=== PATIENT | female | born 1945 | race Caucasian/White ===

== ENCOUNTER → 2020-06-07 10:09 | Outpatient (CLI) | payer MEDICARE, OTHER, SELFPAY ==
--- NOTE | 2020-06-07 10:17 | MRI_ITS ---
STUDY: MRI BRAIN WITH AND WITHOUT CONTRAST REASON FOR EXAM: Female, 74 years old. 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 IV Dotarem 15ml was administered for the contrast portion of the examination. COMPARISON: MRA brain from today FINDINGS: Normal size of the ventricles and extra-axial spaces for the patient''s age. Normal white matter tracts of the supratentorial brain. Mild periventricular T2 lengthening. There is no evidence for recent intracranial ischemia or other cause of cytotoxic edema on diffusion weighted imaging (DWI). Normal bilateral basal ganglia. Normal thalami. There is no extra-axial fluid accumulation. Normal flow voids within the major intracranial circulation suggesting patency by spin echo criteria. Normal venous enhancement. There is no enhancing intra-axial or extra-axial abnormality. Normal sella turcica, pituitary gland, infundibular stalk, optic chiasm and hypothalamus. Normal tectal plate and pineal gland. Normal midbrain, deja and medulla. Normal cerebellum. Normal basal cisterns. Normal bilateral temporal bones. Normal bilateral internal auditory canals. No demonstrated orbital abnormality, within the constraints of a routine brain study. Mild mucosal thickening. Normal calvarium and skull base. Normal visualized soft tissue structures. Normal visualized upper cervical spine. MRI/Brain W/WO Contrast IMPRESSION: Involutional changes of the brain, as described above. Electronically Signed: Ronnie Benavidez MD at 23:58 EDT , Service support ,
--- NOTE | 2020-06-07 10:18 | MRI_ITS ---
STUDY: MRA OF THE HEAD WITHOUT CONTRAST REASON FOR EXAM: Female, 74 years old. left eye ptosis TECHNIQUE: 3-D kpbs-mk-doxxof (TOF) imaging was performed with MIPs. The study was performed unenhanced. COMPARISON: None. FINDINGS: Normal bilateral petrous carotid arteries. Normal right cavernous carotid artery with a normal supraclinoid bifurcation. Normal left cavernous carotid artery with a normal supraclinoid bifurcation. Normal right A1 segments of the anterior cerebral artery. Normal left A1 segments of the anterior cerebral artery. Normal intact anterior communicating artery (ACOM). Normal bilateral A2 segments of the anterior cerebral arteries. Normal right M1 and M2 segments of the middle cerebral arteries, with a normal M1 bifurcation. Normal left M1 and M2 segments of the middle cerebral arteries, with a normal M1 bifurcation. There is non-visualization of the right posterior communicating artery (PCOM). There is non-visualization of the left posterior communicating artery (PCOM). Normal bilateral vertebral arteries. Normal basilar artery with a normal basilar bifurcation. The visualized bilateral superior cerebellar (SCA) arteries are normal. Normal bilateral P1, P2 and visualized P3 segments of the posterior cerebral arteries. There is no demonstrated aneurysm of the iliamna of [place]. There is no major vessel occlusion or hemodynamically significant stenosis. There is no demonstrated abnormality of the visualized brain. MRI/MRA Head ONLY without Contrast IMPRESSION: Normal MRA of the head Electronically Signed: Ronnie Benavidez MD at 23:47 EDT , Service support ,
[2020-06-07 11:45] LABS: CREATININE FINGERSTICK 0.9 mg/dL (0.55-1.02); EGFR FINGERSTICK > 60.0000 mL/min (>60)
== END ==
PROVIDERS: Referring Provider Ophthalmology; Visit Provider Ophthalmology
DX: H02.402 Unspecified ptosis of left eyelid (principal)
CPT/HCPCS: 70544; 70553; A9575

== ENCOUNTER 2023-02-01 22:01 | Emergency (ER) | payer MEDICARE, OTHER, SELFPAY ==
[2023-02-01 22:01] VITALS: BP 174/85; PULSE 80; RESP 16; TEMP 36.8; O2SAT 97; BMI 25.6
[2023-02-01 22:16] VITALS: BP 150/71; PULSE 74; RESP 16; O2SAT 96
--- NOTE | 2023-02-01 22:39 | CT_ITS ---
Individualized dose optimization techniques were used for this CT. COMPARISON: MRI of the brain, June 07, 2020. FINDINGS: Normal soft tissue structures. Normal size ventricles and extra-axial spaces for the patient''s age. Normal white matter tracts of the cerebral hemispheres. Normal basal ganglia and thalami. Normal brainstem. Normal cerebellum. There is no intracranial hemorrhage. There are no findings of an acute ischemic infarction. Normal visualized paranasal sinuses. STUDY: CT BRAIN WITHOUT CONTRAST REASON FOR EXAM: Female, 77 years old. Weakness. Elevated blood sugar. RADIATION DOSAGE (If Supplied By Facility): CTDIvol = ( 44.99 ) mGy, DLP = ( 796.11 ) mGycm TECHNIQUE: Transaxial CT imaging of the brain was performed without administration of intravenous contrast material. Individualized dose optimization techniques were used for this CT. COMPARISON: MRI of the brain, June 07, 2020. FINDINGS: Normal soft tissue structures. Normal size ventricles and extra-axial spaces for the patient''s age. Normal white matter tracts of the cerebral hemispheres. Normal basal ganglia and thalami. Normal brainstem. Normal cerebellum. There is no intracranial hemorrhage. There are no findings of an acute ischemic infarction. Normal visualized paranasal sinuses. IMPRESSION: Normal unenhanced CT scan of the brain. AIDOC was utilized to assist in identifying pertinent positive findings in this case. CT/Brain/Head without Contrast IMPRESSION: Normal unenhanced CT scan of the brain. AIDOC was utilized to assist in identifying pertinent positive findings in this case. Electronically Signed: Shamar Paul DO at 23:24 EDT Reading Location ID and State: [facility] Tel [phone], Service support ,
--- NOTE | 2023-02-01 22:40 | EKG12_ITS ---
Test Reason : DYSRHYTHMIA Blood Pressure : / mmHG Vent. Rate : 074 BPM Atrial Rate : 074 BPM P-R Int : 128 ms QRS Dur : 100 ms QT Int : 398 ms P-R-T Axes : 033 -35 -08 degrees QTc Int : 441 ms Normal sinus rhythm Left axis deviation Abnormal ECG Confirmed by CALOS BILLINGSLEY, JEWELS ([id number]), newspaper editor CELI RUIZ ([id number]) on 02/02/2023 10:22:41 AM Referred By: QUANG Confirmed By:JEWELS LIVE MD
--- NOTE | 2023-02-01 22:41 | EDS_ITS ---
HPI History of Present Illness Chief Complaint: Hyperglycemia Informant: patient and family Narrative Narrative: Transfer patient and son. Evidently she has just been feeling weak and tired recently. They checked blood sugar at home and she was in the upper 500s yesterday. They took her to urgent care. They evidently did a chest x-ray as she has also had a little bit of a scratchy throat for couple weeks. That was normal. COVID was negative. They evidently did CBC and electrolytes. They gave her insulin. They got her down to 221 and sent her home. No medicines were started. Her blood sugars are back up again. She feels weak but it does not sound like it is any focal weakness. She does urinate frequently but no dysuria. She states she has been urinating frequently for a long time. Patient has not seen a physician in probably 30 years other than having cataract surgery in 2019. But they do not know if her blood sugar was checked prior to that. [facility] Medical History Cataract Osteoporosis Home Medications metformin 500 mg tablet 500 mg PO BID #60 tabs 02/02/23 [Rx Last Taken Unknown] Allergy/AdvReac Type Severity Reaction Status Date / Time amoxicillin Allergy Rash Verified 02/01/23 22:04 Social History Smoking Status: Never smoker ROS ROS ED Constitutional Constitutional ED: Denies chills or fever(s) Eyes Eyes: Denies change in vision ENT ENT ED: Reports sore throat; Denies rhinorrhea Cardiovascular Cardiovascular: Denies chest pain or palpitations Respiratory/Chest Respiratory/Chest: Denies cough or dyspnea Gastrointestinal Gastrointestinal: Denies diarrhea, nausea or vomiting Genitourinary Genitourinary ED: Reports urinary frequency; Denies dysuria or hematuria Musculoskeletal Musculoskeletal: Denies myalgias Integumentary Denies rash Neurologic Neurologic: Denies headache(s) Endocrine Endocrinology: Reports polyuria Allergic/Immunologic Allergic/Immunologic ED: Denies urticaria EXAM Physical Exam Narrative Exam Narrative: CONSTITUTIONAL: Patient is nontoxic in appearance. The patient looks comfortable. HEENT: No notable trauma. Mucous membranes look dry. No sinus tenderness. No indication of pain with swallowing. No exudate. No erythema. EYES: No conjunctival injection. No proptosis. CARDIOVASCULAR: Regular rate. Regular rhythm. No notable murmur. No JVD. RESPIRATORY: No respiratory distress. Breathing is unlabored. No wheezes. No rhonchi. No rales. No pain with a deep breath. GASTROINTESTINAL: Not distended. Bowel sounds are normal. No tenderness. No guarding. No rebound. No palpable mass. No bruit. GENITOURINARY: No tenderness over the bladder. No CVA tenderness. MUSCULOSKELETAL: Atraumatic. No peripheral edema. No cord. No tenderness along the deep venous system. No asymmetry. NEUROLOGICAL: Patient is alert and appropriate. No focal deficit noted. SKIN: No noted rashes. No diaphoresis. PSYCHIATRIC: Patient is calm. Mood is appropriate. Const Vital Signs: 02/01/23 22:01 02/01/23 22:16 Temperature 98.2 F Temperature Source Temporal Pulse Rate 80 74 Respiratory Rate 16 16 Blood Pressure 174/85 H 150/71 H Blood Pressure Mean 114 97 Pulse Ox 97 96 Oxygen Delivery Method Room Air Room Air MDM MDM MDM Narrative Medical decision making narrative: Patient CBC shows no acute abnormality. Electrolytes show minimal elevation in the BUN. She was still given some IV fluids for high BUN to creatinine ratio. Glucose was 281. Liver function test showed no acute process. Hemoglobin A1c was able to be obtained and resulted at 12.1. This gives an average glucose over the last 3 months of approximately 300. We now have her about 100 points below what is her average glucose. We went over diet. We talked about carbohydrates versus proteins and fats. Her son seems to be pretty knowledgeable about this. I will get her started on metformin at a low dose of 500 twice daily. They do have a glucose monitor and plenty of strips. I explained that if they are getting blood sugars trending up they can increase the metformin. I would first go 2000 in the morning 500 in the evening and then go to 1000 twice a day. They need to get into physician as soon as possible. I explained that there is a good chance she may need medication changes. We discussed reasons to return also. Lab Data Attestation: I reviewed the patient's lab results. Labs: Laboratory Results - last 24 hr 02/01/23 02/01/23 02/01/23 22:30 22:30 22:30 WBC 8.8 RBC 4.54 Hgb 12.8 Hct 40.5 MCV 89.2 MCH 28.2 MCHC 31.6 L RDW Std Deviation 44.5 H RDW Coeff of Josefina 13.5 Plt Count 264 MPV 11.2 Immature Gran % (Auto) 0.600 Neut % (Auto) 64.0 Lymph % (Auto) 25.0 Mcdonald % (Auto) 8.0 Eos % (Auto) 1.4 Baso % (Auto) 1.0 Absolute Neuts (auto) 5.7 Absolute Lymphs (auto) 2.21 Nucleated RBC % 0 Sodium 137 Potassium 3.6 Chloride 106 Carbon Dioxide 24.0 Anion Gap 7 BUN 20 H Creatinine 0.75 Estim Creat Clear Calc 38.44 Est GFR (MDRD) Af Amer 97 Est GFR (MDRD) Non-Af 80 BUN/Creatinine Ratio 26.7 H Glucose 281 H Hemoglobin A1c 12.1 H Calcium 8.9 Magnesium 1.8 Total Bilirubin 0.40 AST 15 ALT 25 Alkaline Phosphatase 109 Total Protein 6.9 Albumin 3.4 Globulin 3.5 Albumin/Globulin Ratio 1.0 Radiography Diagnostic Testing: Clinical Impression(s) from Imaging Studies Brain CT 02/01/23 22:39 IMPRESSION: Normal unenhanced CT scan of the brain. AIDOC was utilized to assist in identifying pertinent positive findings in this case. Electronically Signed: Shamar Paul DO at 23:24 EDT Reading Location ID and State: [address] [place] [address] Tel [phone], Service support , EKG Initial EKG: Comments: My independent interpretation of the patient's EKG done for generalized weakness shows a normal sinus rhythm overall rate of 74. No ectopy is noted. No acute ST elevation or depression consistent with infarct or ischemia. OR interval, QRS duration and QTc are normal. Discharge Plan Triage Chief Complaint: Hyperglycemia ED Provider: Abner Magana Dx/Rx/DC Orders Clinical Impression: Hyperglycemia Instructions: ED Hyperglycemia New Susp Diabetes Prescriptions: New metformin 500 mg tablet 500 mg PO BID Qty: 60 0RF Primary Care Provider: Care Physician,No Primary Referrals: Todd Rodriguez DO [Med Staff - [employer] Consultant] - As soon as possible Care Physician,No Primary [Primary Care Provider] - Disposition Disposition: Home, Self Care
[2023-02-01 22:49] LABS: Absolute Lymphocyte Count 2.21 X10^3/uL (0.83-4.51); Absolute Neutrophil Count 5.7 X10^3/uL (2.0-7.7); Basophil# 0.09 X10^3/uL; Eosinophil# 0.12 X10^3/uL; Eosinophils% 1.4 % (0-5); Hematocrit 40.5 % (37-47); Hemoglobin 12.8 g/dL (12.0-15.0); Lymphocyte # 2.21 X10^3/ul (0.83-4.51); Mean Corp Hgb Conc 31.6 g/dL (32-36); Mean Corpuscular Hgb 28.2 pg (27.0-32.0); Mean Corpuscular Volume 89.2 fL (81-99); Mean Platelet Vol. 11.2 fl (6.2-12.0); Monocyte# 0.71 X10^3/uL; NRBC Flagged by Analyzer 0 % (0-5); Neutrophil # 5.66 X10^3/uL (2.7-7.7); Platelet Count 264 K/mm3 (150-450); RBC Distribution Width CV 13.5 % (11.6-14.6); RBC Distribution Width SD 44.5 fl (35.1-43.9); Red Blood Count 4.54 M/mm3 (4.2-5.4); White Blood Count 8.8 K/mm3 (4.4-11.0)
[2023-02-01] MEDS: 0.9% Normal Saline 1,000 ML 1000 ML IV (22:56)
[2023-02-01 23:06] LABS: AST(SGOT) 15 U/L (15-37); Alanine Aminotransfer ALT/SGPT 25 U/L (13-56); Albumin, Serum 3.4 g/dL (3.2-5.0); Alkaline Phosphatase 109 U/L (45-117); Anion Gap 7 (5-15); BUN 20 mg/dL (7-18); BUN/Creat Ratio 26.7 RATIO (10-20); Calcium,Total 8.9 mg/dL (8.5-10.1); Chloride 106 mmol/L (98-107); Creatinine, Serum 0.75 mg/dL (0.55-1.02); EST Glomerular Filtration Rate 80 mL/min (>60); Est Glom Filt Rate - Afr Amer 97 mL/min (>60); Estimated Creatinine Clearance 38.44 ml/min; Globulin 3.5 g/dL (2.2-4.2); Glucose 281 mg/dL (74-106); Magnesium 1.8 mg/dL (1.6-2.6); Potassium 3.6 mmol/L (3.5-5.1); Protein, Total 6.9 g/dL (6.4-8.2); Sodium Level 137 mmol/L (136-145)
[2023-02-01] MEDS: metFORMIN HCl 500 MG Tablet PO (23:25)
[2023-02-01] MEDS: Insulin Lispro 100 UNIT/ML INSULN.PEN SC (23:25)
[2023-02-01 23:33] LABS: Hemoglobin A1c 12.1 % (3.8-5.6)
[2023-02-02 01:30] LABS: Bedside Glucose 210 mg/dL (74-106)
[2023-02-02 01:34] VITALS: BP 154/81; PULSE 78; RESP 16; O2SAT 98
== END 2023-02-02 01:35 | disposition home or self-care (01) ==
PROVIDERS: Emergency Provider Emergency Medicine; Visit Provider Emergency Medicine
DX: R73.9 Hyperglycemia, unspecified (principal)
CPT/HCPCS: 70450; 80053; 82962; 83036; 83735; 85025; 93005; 96360; 96361; 96372; 99283; J7030

== ENCOUNTER → 2024-02-18 | Outpatient (CLI) | payer MEDICARE, OTHER, SELFPAY | END | disposition home or self-care (01) | LOC: LAB.FUTURE 18:04 | PROVIDERS: Visit Provider Anesthesiology Pain Medicine | DX: F11.20 Opioid dependence, uncomplicated (principal) ==

== ENCOUNTER → 2024-02-19 | Outpatient (CLI) | payer MEDICARE, OTHER, SELFPAY ==
[2024-02-18 19:16] LABS: Amphetamine Urine VISTA NEGATIVE (<1000 ng/mL); Barbiturate Urine VISTA NEGATIVE (< 200 ng/mL); Benzodiazepine Urine VISTA NEGATIVE (< 200 ng/mL); Cocaine Urine VISTA NEGATIVE (< 300 ng/mL); Ecstacy Urine VISTA NEGATIVE (< 500 ng/mL); Methadone Urine VISTA NEGATIVE (< 300 ng/mL); PCP Urine VISTA NEGATIVE (< 25 ng/mL); THC Urine VISTA NEGATIVE (< 50 ng/mL); Vista UDS pH Range 4
== END | disposition home or self-care (01) ==
PROVIDERS: Referring Provider Anesthesiology Pain Medicine; Visit Provider Anesthesiology Pain Medicine
DX: F11.20 Opioid dependence, uncomplicated (principal)
CPT/HCPCS: 80307

== ENCOUNTER 2024-02-23 21:21 | Emergency (ER) | payer MEDICARE, OTHER, SELFPAY ==
[2024-02-23 21:22] VITALS: BP 164/99; PULSE 131; RESP 18; TEMP 36.3; O2SAT 94
--- NOTE | 2024-02-23 21:48 | EKG12_ITS ---
Test Reason : WOUND Blood Pressure : / mmHG Vent. Rate : 118 BPM Atrial Rate : 118 BPM P-R Int : 150 ms QRS Dur : 092 ms QT Int : 314 ms P-R-T Axes : 034 -40 057 degrees QTc Int : 440 ms Sinus tachycardia Left axis deviation Cannot rule out old ASMI Minimal voltage criteria for LVH, may be normal variant ( R in aVL ) Abnormal ECG Confirmed by Dixon Scott ([id number]), videotape editor CELI RUIZ ([id number]) on 02/24/2024 9:06:34 AM Referred By: Confirmed By:Dixon Scott
[2024-02-23 22:08] LABS: Absolute Lymphocyte Count 1.82 X10^3/uL (0.83-4.51); Absolute Neutrophil Count 8.4 X10^3/uL (2.0-7.7); Basophil# 0.09 X10^3/uL; Basophil% 0.8 % (0-1); Eosinophil# 0.03 X10^3/uL; Eosinophils% 0.3 % (0-5); Hematocrit 40.2 % (37-47); Hemoglobin 12.4 g/dL (12.0-15.0); Lymphocyte # 1.82 X10^3/ul (0.83-4.51); Mean Corp Hgb Conc 30.8 g/dL (32-36); Mean Corpuscular Hgb 26.6 pg (27.0-32.0); Mean Corpuscular Volume 86.1 fL (81-99); Mean Platelet Vol. 9.4 fl (6.2-12.0); Monocyte# 0.85 X10^3/uL; Monocyte% 7.5 % (0-10); NRBC Flagged by Analyzer 0 % (0-5); Neutrophil # 8.42 X10^3/uL (2.7-7.7); Neutrophil % 73.8 % (47-70); Platelet Count 459 K/mm3 (150-450); RBC Distribution Width CV 14.9 % (11.6-14.6); RBC Distribution Width SD 46.8 fl (35.1-43.9); Red Blood Count 4.67 M/mm3 (4.2-5.4); White Blood Count 11.4 K/mm3 (4.4-11.0)
[2024-02-23 22:24] VITALS: BP 153/82; PULSE 120; RESP 20; TEMP 36.7; O2SAT 153
[2024-02-23 22:31] LABS: ALB/GLOB Ratio 0.7 RATIO (0.9-2.4); AST(SGOT) 110 U/L (15-37); Alanine Aminotransfer ALT/SGPT 97 U/L (13-56); Alkaline Phosphatase 469 U/L (45-117); Anion Gap 8 (5-15); BUN 17 mg/dL (7-18); BUN/Creat Ratio 26.5 RATIO (10-20); Calcium,Total 10.3 mg/dL (8.5-10.1); Chloride 103 mmol/L (98-107); Creatinine, Serum 0.64 mg/dL (0.55-1.02); EST Glomerular Filtration Rate 96 mL/min (>60); Est Glom Filt Rate - Afr Amer 116 mL/min (>60); Globulin 4.2 g/dL (2.2-4.2); Glucose 156 mg/dL (74-106); Potassium 3.4 mmol/L (3.5-5.1); Protein, Total 7.2 g/dL (6.4-8.2); Sodium Level 137 mmol/L (136-145)
[2024-02-23 23:00] VITALS: BP 163/91; PULSE 70; RESP 17; TEMP 37; O2SAT 95
--- NOTE | 2024-02-23 23:02 | CT_ITS ---
EXAM: CT ANGIOGRAPHY CHEST WITHOUT AND WITH INTRAVENOUS CONTRAST CLINICAL INDICATION: left brest mass pulmonary embolism TECHNIQUE: Helically acquired angiography images were obtained of the chest without and with intravenous contrast. This CT exam was performed using one or more of the following dose reduction techniques: automated exposure control, adjustment of the mA and/or kV according to patient size, and/or use of iterative reconstruction technique. MIP reconstructed images were created and reviewed. CONTRAST: IV 100mL Isovue-370 RADIATION DOSE: CTDIvol = 9.27 mGy, DLP = 258.15 mGy-cm COMPARISON: No relevant prior studies available. FINDINGS: PULMONARY ARTERIES: No evidence of pulmonary embolism. Normal in caliber. AORTA: Unremarkable. Normal in caliber. No evidence of dissection. GREAT VESSELS OF AORTIC ARCH: Unremarkable. Normal in caliber. No evidence of dissection. LUNGS AND PLEURAL SPACES: Small left pleural effusion and left basilar atelectasis. No mass. No pneumothorax. HEART: Mild cardiomegaly. No pericardial effusion. No significant coronary artery calcifications. MEDIASTINUM: Unremarkable. No mediastinal or hilar adenopathy. Esophagus is unremarkable. No hiatal hernia. THYROID: Unremarkable. No thyroid lesions. BONES/JOINTS: Diffuse metastatic lesions throughout the thoracic spine. LYMPH NODES: Left breast mass measuring 5.1 cm and the skin surface. Associated left axillary adenopathy measuring up to 1.[address]/CTA Chest W/WO Contrast IMPRESSION: 1. Small left pleural effusion and left basilar atelectasis. 2. Left breast mass measuring 5.1 cm and the skin surface. Associated left axillary adenopathy measuring up to 1.3 cm. Findings are most consistent with breast cancer. 3. Multiple metastatic lesions in the spine. 4. No evidence of pulmonary embolism. Electronically Signed: Gerson Weston MD at 1:36 EDT ,
--- NOTE | 2024-02-23 23:02 | CT_ITS ---
EXAM: CT ABDOMEN AND PELVIS WITH INTRAVENOUS CONTRAST CLINICAL INDICATION: Elevated liver enzymes possible metastatic breast TECHNIQUE: Helically acquired images were obtained of the abdomen and pelvis with intravenous contrast. This CT exam was performed using one or more of the following dose reduction techniques: automated exposure control, adjustment of the mA and/or kV according to patient size, and/or use of iterative reconstruction technique. CONTRAST: IV 100mL Isovue-370 RADIATION DOSE: CTDIvol = 12.61 mGy, DLP = 570.30 mGy-cm COMPARISON: No relevant prior studies available. FINDINGS: LOWER THORAX: Unremarkable. Lung bases are clear. No cardiomegaly. No significant pericardial effusion. ABDOMEN: LIVER: Unremarkable. Homogeneous. No focal mass. GALLBLADDER AND BILE DUCTS: Unremarkable. No calcified gallstones. No gallbladder distention or wall edema. No intra- or extrahepatic biliary ductal dilation. PANCREAS: Unremarkable. No focal cystic or solid mass. SPLEEN: Multiple irregular hypodense lesions throughout the spleen measuring up to 2.2 cm consistent with metastatic disease. ADRENALS: Unremarkable. No nodules. KIDNEYS AND URETERS: Unremarkable. Normal renal size and position. No hydronephrosis. STOMACH AND BOWEL: Unremarkable. No stomach or bowel distention. No focal inflammatory change. PELVIS: APPENDIX: No evidence of acute appendicitis. BLADDER: Unremarkable. REPRODUCTIVE: There is a 3.2 cm left ovarian cyst. ABDOMEN and PELVIS: INTRAPERITONEAL SPACE: Unremarkable. No ascites or other fluid collection. No free air. BONES/JOINTS: Multiple metastatic lesions throughout the spine and pelvis, including a lesion causing significant destruction of the L3 vertebral body, with associated soft tissue mass causing moderate central canal stenosis. SOFT TISSUES: Unremarkable. No discrete abdominal or pelvic wall hernia. VASCULATURE: Unremarkable. Abdominal aorta is non-dilated. LYMPH NODES: Multiple enlarged retroperitoneal lymph nodes measuring up to 1.[address]/Abdomen/Pelvis W IV Cont ONLY IMPRESSION: 1. No acute abnormalities identified in the abdomen/pelvis. 2. Multiple irregular hypodense lesions throughout the spleen measuring up to 2.2 cm consistent with metastatic disease. 3. Multiple metastatic lesions throughout the spine and pelvis, including a lesion causing significant destruction of the L3 vertebral body, with associated soft tissue mass causing moderate central canal stenosis. 4. Multiple enlarged retroperitoneal lymph nodes measuring up to 1.1 cm. This also likely indicates metastatic disease. Electronically Signed: Gerson Weston MD at 1:33 EDT ,
[2024-02-24] VITALS: BP 163/92; PULSE 119; RESP 19; TEMP 37.4; O2SAT 94
--- NOTE | 2024-02-24 00:13 | EX.ED.DYSGE1 ---
HPI <Dr. Gavin Rhodes DO - Last Filed: 02/24/24 01:19> History of Present Illness Chief Complaint: Wound Informant: patient and family Narrative Narrative: 78-year-old female presenting to the emergency room with a complaint of wound on chest. Apparently the patient was getting ready to take a shower tonight with an aide and then noticed a wound on her chest. Patient states it has been there for about 2 years. She has not had any prior breast surgery. She has been recently seen for some low back pain over the past month and is supposed to be seen tomorrow by pain management for an injection. Patient sister had breast cancer in the past. Patient states that her heart rate is fast because she is very nervous. Other than back pain and pain in her legs she has not spearing seeing any chest pain or dyspnea. No reported fevers. PFSH <Dr. Gavin Rhodes DO - Last Filed: 02/24/24 01:19> [facility] Medical History Lumbar compression fracture Cataract Osteoporosis Home Medications ?Medication ?Instructions ?Recorded ?Last Taken ?Type hydrocodone-acetaminophen 5-325mg 1 tab PO Q8H PRN PRN pain 02/24/24 02/23/24 08:00 History 5mg-325mg Allergy/AdvReac Type Severity Reaction Status Date / Time amoxicillin Allergy Rash Verified 02/23/24 21:24 Social History Smoking Status: Never smoker ROS <Dr. Gavin Rhodes DO - Last Filed: 02/24/24 01:19> ROS ED Constitutional Constitutional ED: Denies chills or weight loss Eyes Eyes: Denies change in vision or diplopia ENT ENT ED: Denies ear pain, rhinorrhea or sore throat Cardiovascular Cardiovascular: Denies chest pain, orthopnea, palpitations or racing heartbeat Respiratory/Chest Respiratory/Chest: Denies cough, dyspnea, dyspnea on exertion or orthopnea Gastrointestinal Gastrointestinal: Denies abdominal pain, diarrhea, nausea or vomiting Genitourinary Genitourinary ED: Denies dysuria, hematuria or urinary frequency Musculoskeletal Musculoskeletal: Reports back pain; Denies arthralgias or myalgias Integumentary Reports other Details: Chronic wound left chest ; Denies abscess or rash Neurologic Neurologic: Reports other Details: Bilateral leg pain which the patient relates to her back pain ; Denies headache(s) or weakness Psychiatric Psychiatric: Denies anxiety, depression, suicidal ideation or suicidal thoughts Endocrine Endocrinology: Denies polydipsia, polyphagia or polyuria Allergic/Immunologic Allergic/Immunologic ED: Denies mouth swelling, tongue swelling or urticaria EXAM <Dr. Gavin Rhodes, DO - Last Filed: 02/24/24 01:19> Physical Exam Const Vital Signs: 02/23/24 21:22 02/23/24 22:24 02/23/24 23:00 Temperature 97.4 F L 98.1 F 98.6 F Temperature Source Temporal Temporal Temporal Pulse Rate 131 H 120 H 70 Respiratory Rate 18 20 H 17 Blood Pressure 164/99 H 153/82 H 163/91 H Blood Pressure Mean 120 105 115 Pulse Ox 94 153 95 Oxygen Delivery Method Room Air Room Air 02/24/24 00:00 02/24/24 01:00 Temperature 99.4 F H 99.5 F H Temperature Source Oral Oral Pulse Rate 119 H 102 H Respiratory Rate 19 H 18 Blood Pressure 163/92 H 153/82 H Blood Pressure Mean 115 105 Pulse Ox 94 93 Oxygen Delivery Method Room Air Room Air Positive well nourished and well developed General Appearance ED: well developed HEENT Reports normocephalic, head/scalp atraumatic and moist mucous membranes Eyes PERRL and EOMs intact bilaterally Neck no lymphadenopathy, supple and no JVD Chest Wall Chest Narrative: There is a large firm fungating mass of the left breast extending up into the axilla. There is no evidence of secondary infection at this time. There is no visible areola/nipple. Resp normal respiratory effort and clear to auscultation bilaterally Cardio regular rate, regular rhythm and no murmurs Rate: tachycardic GI normal to inspection, nondistended, normoactive bowel sounds and non-tender Palpation: soft Back/Spine no CVA tenderness and normal ROM Extremity normal to inspection General Extremety ED: Negative for edema General Extremity: Negative for edema Neuro oriented x3 and CN's II-XII intact bilaterally Sensorium / Orientation: alert Sensory Exam: No sensory level loss detected Motor Exam: strength 5/5 throughout Psych mental status grossly normal Mood & Affect: Negative for depressed or tearful Skin no rashes or lesions noted and no wounds <Dr. Darrell Ramos, DO - Last Filed: 02/24/24 01:59> Physical Exam Const Vital Signs: 02/23/24 21:22 02/23/24 22:24 02/23/24 23:00 Temperature 97.4 F L 98.1 F 98.6 F Temperature Source Temporal Temporal Temporal Pulse Rate 131 H 120 H 70 Respiratory Rate 18 20 H 17 Blood Pressure 164/99 H 153/82 H 163/91 H Blood Pressure Mean 120 105 115 Pulse Ox 94 153 95 Oxygen Delivery Method Room Air Room Air 02/24/24 00:00 02/24/24 01:00 Temperature 99.4 F H 99.5 F H Temperature Source Oral Oral Pulse Rate 119 H 102 H Respiratory Rate 19 H 18 Blood Pressure 163/92 H 153/82 H Blood Pressure Mean 115 105 Pulse Ox 94 93 Oxygen Delivery Method Room Air Room Air MDM <Dr. Gavin Rhodes, DO - Last Filed: 02/24/24 01:19> [facility] MDM Narrative Medical decision making narrative: Differential diagnosis includes skin cancer breast cancer or other malignancy, pulmonary embolism, anemia, electrolyte disturbance, dehydration. Basic blood work shows a white count 11.4 with a hemoglobin of 12.4 platelet count of 459. Potassium slightly low at 3.4 BUN is 17 creatinine 0.64. Glucose 156. There is some elevation of her AST at 110 ALT of 97 alk phos of 469. EKG confirms sinus tachycardia at a rate of 118. CTA of the chest and CT of the pelvis with contrast was obtained. There is been substantial delay in getting the results of the CT read. At this time care of the patient will be turned over to the night physician for check of the final read and final disposition. Patient has received an oxycodone for pain at her request. She is noting pain in her legs at this time. History & Record Review Discussion w/independent historian: Patient and Family Lab Data Attestation: I reviewed the patient's lab results. Labs: Laboratory Results - last 24 hr 02/23/24 22:01 WBC 11.4 H RBC 4.67 Hgb 12.4 Hct 40.2 MCV 86.1 MCH 26.6 L MCHC 30.8 L RDW Std Deviation 46.8 H RDW Coeff of Josefina 14.9 H Plt Count 459 H MPV 9.4 Immature Gran % (Auto) 1.600 H Neut % (Auto) 73.8 H Lymph % (Auto) 16.0 L [place] % (Auto) 7.5 Eos % (Auto) 0.3 Baso % (Auto) 0.8 Absolute Neuts (auto) 8.4 H Absolute Lymphs (auto) 1.82 Nucleated RBC % 0 Sodium 137 Potassium 3.4 L Chloride 103 Carbon Dioxide 26.0 Anion Gap 8 BUN 17 Creatinine 0.64 Est GFR (MDRD) Af Amer 116 Est GFR (MDRD) Non-Af 96 BUN/Creatinine Ratio 26.5 H Glucose 156 H Calcium 10.3 H Total Bilirubin 0.60 AST 110 H ALT 97 H Alkaline Phosphatase 469 H Total Protein 7.2 Albumin 3.0 L Globulin 4.2 Albumin/Globulin Ratio 0.7 L Radiography Diagnostic Testing: Clinical Impression(s) from Imaging Studies Abdomen/Pelvis CT 02/23/24 23:02 IMPRESSION: 1. No acute abnormalities identified in the abdomen/pelvis. 2. Multiple irregular hypodense lesions throughout the spleen measuring up to 2.2 cm consistent with metastatic disease. 3. Multiple metastatic lesions throughout the spine and pelvis, including a lesion causing significant destruction of the L3 vertebral body, with associated soft tissue mass causing moderate central canal stenosis. 4. Multiple enlarged retroperitoneal lymph nodes measuring up to 1.1 cm. This also likely indicates metastatic disease. Electronically Signed: Gerson Weston MD at 1:33 EDT Reading [facility] Tel , Service support , Chest CTA 02/23/24 23:02 IMPRESSION: 1. Small left pleural effusion and left basilar atelectasis. 2. Left breast mass measuring 5.1 cm and the skin surface. Associated left axillary adenopathy measuring up to 1.3 cm. Findings are most consistent with breast cancer. 3. Multiple metastatic lesions in the spine. 4. No evidence of pulmonary embolism. Electronically Signed: Gerson Weston MD at 1:36 EDT , <Dr. Darrell Ramos, DO - Last Filed: 02/24/24 01:59> [facility] Lab Data Labs: Laboratory Results - last 24 hr 02/23/24 22:01 WBC 11.4 H RBC 4.67 Hgb 12.4 Hct 40.2 MCV 86.1 MCH 26.6 L MCHC 30.8 L RDW Std Deviation 46.8 H RDW Coeff of Josefina 14.9 H Plt Count 459 H MPV 9.4 Immature Gran % (Auto) 1.600 H Neut % (Auto) 73.8 H Lymph % (Auto) 16.0 L [place] % (Auto) 7.5 Eos % (Auto) 0.3 Baso % (Auto) 0.8 Absolute Neuts (auto) 8.4 H Absolute Lymphs (auto) 1.82 Nucleated RBC % 0 Sodium 137 Potassium 3.4 L Chloride 103 Carbon Dioxide 26.0 Anion Gap 8 BUN 17 Creatinine 0.64 Est GFR (MDRD) Af Amer 116 Est GFR (MDRD) Non-Af 96 BUN/Creatinine Ratio 26.5 H Glucose 156 H Calcium 10.3 H Total Bilirubin 0.60 AST 110 H ALT 97 H Alkaline Phosphatase 469 H Total Protein 7.2 Albumin 3.0 L Globulin 4.2 Albumin/Globulin Ratio 0.7 L Radiography Diagnostic Testing: Clinical Impression(s) from Imaging Studies Abdomen/Pelvis CT 02/23/24 23:02 IMPRESSION: 1. No acute abnormalities identified in the abdomen/pelvis. 2. Multiple irregular hypodense lesions throughout the spleen measuring up to 2.2 cm consistent with metastatic disease. 3. Multiple metastatic lesions throughout the spine and pelvis, including a lesion causing significant destruction of the L3 vertebral body, with associated soft tissue mass causing moderate central canal stenosis. 4. Multiple enlarged retroperitoneal lymph nodes measuring up to 1.1 cm. This also likely indicates metastatic disease. Electronically Signed: Gerson Weston MD at 1:33 EDT , Chest CTA 02/23/24 23:02 IMPRESSION: 1. Small left pleural effusion and left basilar atelectasis. 2. Left breast mass measuring 5.1 cm and the skin surface. Associated left axillary adenopathy measuring up to 1.3 cm. Findings are most consistent with breast cancer. 3. Multiple metastatic lesions in the spine. 4. No evidence of pulmonary embolism. Electronically Signed: Gerson Weston MD at 1:36 EDT , Treatment and Re-Evaluation :: The patient was signed out to me while awaiting results of the CTA of the chest and CT of the abdomen and pelvis. The images showed metastatic cancer secondary to a primary breast lesion. However there is no pulmonary embolus noted. At this time the patient's vitals are stable she is in no respiratory distress. The family has been made aware of the findings as well. The patient has oxycodone reportedly at home to help control pain. They wish at this time to follow-up with oncology to discuss potential treatment options before being placed in hospice care. Therefore a fast pass referral was made as well as the family given the name of Dr. Redman. At this time as the patient is not requiring supplemental oxygen does not have a pulmonary embolus and has pain control she will be discharged and can follow-up on an outpatient basis Discharge Plan Triage Chief Complaint: Wound ED Provider: Gavin Rhodes Dx/Rx/DC Orders Clinical Impression: Sinus tachycardia, Breast cancer, Metastasis, Metastatic cancer to spine, Lumbar radiculopathy Prescriptions: No Action hydrocodone-acetaminophen 5-325 mg tablet 1 tab PO Q8H PRN PRN (Reason: pain) Other Ambulatory Orders: Fast Pass: Oncology Referral [facility] (Routine) Facility: [facility] - Location: [facility] Ordered By: Dr. Darrell Ramos Primary Care Provider: Amparo Munguia Referrals: Amparo Munguia DO [Primary Care Provider] - John Redman DO [Med Staff - Active Staff] - 3-5 Days Activity Restrictions/Additional Instructions: Please follow-up with [facility] as directed by the referral made this evening. Continue with the oxycodone for pain control. Your CT scans have shown changes consistent with metastatic breast cancer. You will need to talk to oncology about potential treatment options and/or need for hospice placement. Return to the ER should you have any further concerns Print Language: Indonesian Disposition Disposition: Home, Self Care
[2024-02-24] MEDS: oxyCODONE 5 MG Tablet PO (00:15)
[2024-02-24 01:00] VITALS: BP 153/82; PULSE 102; RESP 18; TEMP 37.5; O2SAT 93
--- NOTE | 2024-02-24 01:01 | ED.RN ---
I called radiology about imaging results being over projected read time, I was informed they called and were having it read CARLOS.
[2024-02-24 02:10] VITALS: BP 154/83; PULSE 122; RESP 17; TEMP 37.3; O2SAT 93
== END 2024-02-24 02:22 | disposition home or self-care (01) ==
PROVIDERS: Emergency Provider Emergency Medicine; PCP Family Medicine; Visit Provider Emergency Medicine
DX: C50.912 Malignant neoplasm of unspecified site of left female breast (principal); C79.51 Secondary malignant neoplasm of bone; M54.16 Radiculopathy, lumbar region; R00.0 Tachycardia, unspecified
CPT/HCPCS: 71275; 74177; 80053; 85025; 93005; 99284; Q9967; A4216